=== PATIENT | male | born 1990 | race Caucasian/White ===

== ENCOUNTER 2017-05-28 12:22 | Emergency (ER) | payer BC ==
[~2017-05-28] VITALS: Ht 165.1 cm; Wt 68.5 kg
[2017-05-28 12:24] VITALS: Ht 165.1 cm; Wt 68.5 kg
--- NOTE | 2017-05-28 15:43 | ERD ---
ER Documentation Chief Complaint Date/Time DATE: 05/28/17 TIME: 15:41 Chief Complaint ABNORMAL LABS, SENT BY PMD, DENIES ANY SYMPTOMS HPI This is a 26-year-old male who presents to the emergency room for evaluation of abnormal lab work. This patient was seen by his primary care physician, Dr. Deng and was evaluated and did have lab work drawn which showed an elevation in his creatinine and his potassium. This patient states that he has had no symptoms and denies any previous renal issues. ROS All systems reviewed and are negative except as per history of present illness. Medications Home Meds Reported Medications [None] No Conflict Check 10/03/11 Allergies Allergies: Uncoded Allergies: NONE (Allergy, 10/03/11) PMhx/Soc History of Surgery: No Anesthesia Reaction: No Hx Neurological Disorder: No Hx Respiratory Disorders: No Hx Cardiac Disorders: No Hx Psychiatric Problems: No Hx Miscellaneous Medical Probl: No Hx Alcohol Use: No Hx Substance Use: No Hx Tobacco Use: No Physical Exam Vitals Vital Signs Date Time Temp Pulse Resp B/P Pulse Ox O2 Delivery O2 Flow Rate FiO2 05/28/17 12:24 98.2 79 18 137/79 98 Physical Exam Const: No acute distress Head: Atraumatic Eyes: Normal Conjunctiva ENT: Normal External Ears, Nose and Mouth. Neck: Full range of motion..~ No meningismus. Resp: Clear to auscultation bilaterally Cardio: Regular rate and rhythm, no murmurs Abd: Soft, non tender, non distended. Normal bowel sounds Skin: No petechiae or rashes Back: No midline or flank tenderness Ext: No cyanosis, or edema Neur: Awake and alert Psych: Normal Mood and Affect Procedures/MDM EKG: Rate/Rhythm: [Normal Sinus Rhythm] QRS, ST, T-waves: [No changes consistent w/ acute ischemia] Impression: [No evidence of ischemia or arrhythmia] This 26-year-old male presents to the ER for evaluation of abnormal lab work. While this patient was in the waiting room his primary care physician, Dr. deng called and stated that they had drawn stat blood work on him and came back normal and that his original blood work is a lab error. I have seen and evaluated this patient and done a medical exam. This patient has no palpitations, and is completely asymptomatic. I do feel this is lab error and patient will be discharged at this time. Departure Diagnosis: Primary Impression: Encounter for medical screening examination Condition: Stable SUDHEER MOONEY DO May 28, 2017 15:43
== END 2017-05-28 16:36 | disposition home or self-care (01) ==
LOC: E/R 12:22
DX: Z00.00 Encounter for general adult medical examination without abnormal findings (principal); R07.9 Chest pain, unspecified
CPT/HCPCS: 93005

== ENCOUNTER 2017-11-30 10:33 | Emergency (ER) | END 2017-11-30 12:55 | disposition home or self-care (01) ==